=== PATIENT | female | born 1955 | race Caucasian/White ===

== ENCOUNTER → 2024-09-18 12:09 | Outpatient (REF) | payer MEDICARE, OTHER, SELFPAY | LOC: RAD 12:09 | PROVIDERS: ATTENDING PHYSICIAN Internal Medicine Cardiovascular Disease; FAMILY PHYSICIAN Internal Medicine | DX: L40.50 Arthropathic psoriasis, unspecified (principal) | CPT/HCPCS: 71250 ==

== ENCOUNTER 2024-09-25 17:29 | Emergency (ER) | payer MEDICARE, OTHER, SELFPAY ==
[2024-09-25 17:33] VITALS: BP 173/125
[2024-09-25 17:48] LABS: % Basophils 0.6 % (0-2); % Eosinophils 1.3 % (0-6); % Immature Granulocytes 0.3 % (0-0.5); % Lymphocytes 29.5 % (20.5-51.1); % Monocytes 7.5 % (1.7-9.3); % Neutrophils 60.8 % (42.2-75.2); Absolute Basophils 0.1 10^3/uL (0-0.2); Absolute Eosinophils 0.1 10^3/uL (0-0.7); Absolute Lymphocytes 2.3 10^3/uL (1.2-3.4); Absolute Monocytes 0.6 10^3/uL (0.1-0.6); Absolute Neutrophils 4.8 10^3/uL (1.4-6.5); Hematocrit 39.1 % (37.0-47.0); Hemoglobin 13.3 g/dL (12.0-16.0); Mean Corpuscular Hgb 29.8 pg (27.0-31.0); Mean Corpuscular Volume 87.5 fL (81.0-99.0); Nucleated Red Blood Cells % 0 %; Platelet Count 275 10^3/uL (130-400); Red Blood Cell Count 4.47 10^6/uL (4.20-5.40); Red Cell Dist. Width 13.1 % (11.5-14.5); White Blood Cell Count 7.9 10^3/uL (4.8-10.8)
[2024-09-25 18:00] VITALS: BMI 31.4
[2024-09-25 18:04] VITALS: BP 177/80
[2024-09-25 18:07] VITALS: BP 177/80
[2024-09-25 18:08] LABS: ALT (SGPT) 19 U/L (0-35); AST (SGOT) 25 U/L (14-36); Albumin 4.5 g/dl (3.5-5.0); Alkaline Phosphatase 90 U/L (38-126); Blood Urea Nitrogen 25 mg/dl (7-17); Calcium 9.6 mg/dl (8.4-10.2); Carbon Dioxide 26 mmol/L (22-30); Chloride 101 mmol/L (98-107); Estimated Creatinine Clearance 72 ml/min; Glucose 99 mg/dl (70-99); Potassium 4.2 mmol/L (3.5-5.1); Sodium 140 mmol/L (135-145); Total Bilirubin 0.4 mg/dl (0.2-1.3); Total Protein 7.4 g/dl (6.3-8.2); eGFR > 60.00
[2024-09-25 18:10] LABS: Troponin I < 0.012 ng/ml
--- NOTE | 2024-09-25 18:34 | ED.GENMED ---
History of Present Illness
General
Chief Complaint: Back Pain
Source: patient
Exam Limitations: none
Time Seen by Provider: 09/25/24 17:57
History of Present Illness
History of Present Illness:
This is a 68 year old female that comes in with c/o left sided back/flank pain. States that this has been constant since Sunday and her thought that he felt a lump there. States that she has no appetite. States that the pain was getting
worse today. Denies any fever, chills, chest pain, SOB, abd pain, nausea, vomiting, diarrhea, headache, dizziness, urinary burning.
Past History
Past History
ED Past Medical History: HTN and Other (sarcoidosis, Ulcers, UTI)
ED Past Surgical History: Gynecological (Hysterectomy) and Orthopedic (Back surgery, Left shoulder surgery. Left Femur , hand and wrist surgery, Partial left knee replacement)
Social History
Tobacco: Non-smoker
Alcohol: None
Personal:
Living: with family
Review of Systems
Review of Systems
All Other Systems: ROS reviewed and negative except as documented in HPI and ROS
Constitutional: Reports no symptoms; Denies fever or chills
EENT: Reports no symptoms
Respiratory: Reports no symptoms; Denies cough or trouble breathing
Cardiac: Reports no symptoms; Denies chest pain
ABD/GI: Reports no symptoms; Denies abdominal pain, nausea, vomiting or diarrhea
: Reports no symptoms; Denies dysuria, frequency or urgency
Musculoskeletal: Reports other (Left mid back/flank pain)
Skin: Reports no symptoms
Neurological: Reports no symptoms; Denies dizzy or headache
Psychiatric: Reports no symptoms
Phy Exam
General Physical Exam
General Presentation: well appearing and no apparent distress
General age: appears stated age
General Skin: warm and dry
General Habitus: elderly
General Mental: alert
General Hydration: appears well hydrated
ENT Exam
ENT Exam: TM's normal, pharynx normal and neck supple
Eye Exam
Eye Exam: EOMI
Cardiovascular Exam
Cardiovascular Exam: regular rate/rhythm, no edema, no murmur and normal peripheral pulses
Pulmonary Exam
Pulmonary Exam: lungs clear, no respiratory distress, no rales, chest non tender, no crackles, no rhonchi, no wheezing and no cough
Gastrointestinal Exam
Gastrointestinal Exam: normal bowel sounds, non tender, soft, no organomegaly, no pulsatile mass and non distended
Musculoskeletal Exam
Musculoskeletal Exam: full ROM, no edema and other (Tenderness with palpation over the left mid lateral back area )
Skin Exam
Skin Exam: normal color, warm/dry, no rash and no petechia
Psychiatric Exam
Psychiatric Exam: normal mood/affect
Course
Orders/Labs/Results
Orders:
Orders
09/25/24 17:32
EKG [Electrocardiogram (*1)] Urgent
Reason for Study: Hypertension, Benign
09/25/24 17:33
EKG- Treatment ONCE
09/25/24 17:40
CBC/With Diff [Complete Blood Count/With Diff] Urgent
CMP [Comprehensive Metabolic Panel] Urgent
Troponin I Urgent
09/25/24 17:53
EKG [Electrocardiogram (*1)] Stat
Reason for Study: Abdominal Pain
EKG- Treatment ONCE
09/25/24 18:34
CR Chest - 2 Views Urgent
Comment:
Reason For Exam: left sided chest discomfort
09/25/24 18:39
CT Abd/pelvis W Iv Cont Urgent
Comment:
Reason For Exam: Left sided flank pain
0.9% Sodium Chloride 1000 ml [Nss] 1,000 ml IV BOLUS
09/25/24 19:19
Urinalysis Reflex To Culture Urgent
Date Specimen was Collected: 09/25/24
Time Specimen was Collected: 19:19
Urine Microscopic Reflex Cult Urgent
Abnormal Lab Results
09/25/24 09/25/24
17:40 19:19
BUN 25 H mg/dl
(7-17)
Ur Occult Blood Reflex 1+ A
(Negative)
Urine RBC 7-10 A /HPF
(0-2)
09/25/24 17:40
09/25/24 17:40
Dehydration. Troponin <0.012, Urine negative for infection.
Vital Signs
Initial and Last Documented VS:
Initial Vital Signs
Temp Pulse Resp BP Pulse Ox
98.7 F 83 17 173/125 97
09/25/24 17:33 09/25/24 17:33 09/25/24 17:33 09/25/24 17:33 09/25/24 17:33
Last Documented Vital Signs
Temp Pulse Resp BP Pulse Ox
98.7 F 71 29 177/80 96
09/25/24 17:33 09/25/24 18:39 09/25/24 18:39 09/25/24 18:07 09/25/24 19:15
MDM/Problems Addressed
Differential Diagnosis Includes:
Renal calculus, Musculoskeletal pain
MDM/Problems Addressed:
This is a 68 year old female that comes in with c/o left sided flank pain. States that this started on Sunday and has been constant.
Will check labs. Urine, Chest x-ray and get CT scan of abd/pelvis.
Back into see patient. Explained that her blood work shows Dehydration. Her Chest x-ray is normal and there is nothing acute on the CT scan. This may be musculoskeletal in nature. Patient to use heat or ice which ever make her feel better. Tylenol
1000mg very 6 hours for pain and follow up with the family doctor. IF THE PAIN changes or increased patient to return to the emergency room.
Chronic conditions affecting care:
NA
Acute Exacerbation and/or Progression of Chronic Illness:
NA
*Radiology
Radiology exam reviewed: radiology read reviewed ( chest-NO acute cardiopulmonary process. CT-innominate symmetric bilateral renal excretion. Small hiatal hernia. Mild hepatomgaly versus incidental Uri's lobe morphology. Two small low-
attenuation left lobe hepatic lesions too small to characterize. Unremarkable appearance of the gallbladder), all reviewed NAD by ED Provider (CT cont-No findings to suggest biliary tract dilation. Three tiny calcific foci seen in the right upper
quadrant of the abdomen, anterior to the IVC, difficult to determiine exact position, cannot exclude small stones in the nondilated distal common bile duct. Suggest correlation with LFT's. Prior ) and other (CT cont-hysterectomy. No given history of
oophorectomy. 2.9cm simple appearing cyest in the right true pelvis which could represent an ovarian cyst, not typical for patient age. Other etiology such as a mesenteric cyst cannot be differentiated. )
*Pulse Oximetry
Patient hypoxic: no
*EKG
Interpreted by ED Provider?: Yes
Heart Rate: 76
Rate: normal
Rhythm: sinus
[place]: left axis deviation
Interval: normal interval
QRS Pattern: normal QRS
Ischemia: no ischemia
*Exercise Teacher Interpretation
Rate: normal
Heart Rate: 72
Rhythm: sinus
*Critical Care Note
Total Time (30-74mins, 75-104mins- exclusive of procedures): Not Applicable
ED Attending Note
-
Portions of this chart may have been created with voice recognition software.� Occasional wrong word or��sound alike� substitutions may have occurred due to the inherent limitations of voice recognition software.
Discharge Plan
Departure
Patient Disposition: Home (Routine Discharge)
Date of Disposition: 09/25/24
Time of Disposition: 20:58
Patient with high blood pressure during this ER visit?: Yes
Condition: Good
Covid-19: Not Applicable
Discharge Problem:
Acute left-sided back pain, Musculoskeletal pain
Instructions: Upper Back Pain (DC), BLOOD PRESSURE, Musculoskeletal Pain
Prescriptions:
No Action
valsartan [Diovan] 160 MG capsule
160 mg PO HS
nitrofurantoin macrocrystal 50 MG capsule
50 mg PO DAILY
omeprazole 40 MG capsule,delayed release(DR/EC)
40 mg PO DAILYPRN PRN (Reason: acid reflux)
tramadol 50 MG tablet
50 mg PO Q6HPRN PRN (Reason: pain)
levothyroxine 88 MCG tablet
88 mcg PO DAILY
levofloxacin [Levaquin] 500 MG tablet
500 mg PO DAILY
vitamin B complex [Neurodep] 1 CAP capsule
1 cap PO DAILY
docosahexaenoic acid-epa 1 CAP capsule
1 cap PO DAILY
cholecalciferol (vitamin D3) 1,000 UNITS tablet
5,000 units PO DAILY
Referrals:
Meli Hogan MD [Family Provider] - Follow up in 2-3 days
Activity Restrictions/Additional Instructions:
As discussed, your blood work shows that you are dehydrated. Please increase your water intake to 8-8oz glasses daily. Your Chest x-ray is normal along with the CT of the abd/pelvis. You may use Tylenol 1000mg every 6 hours for pain. Heat or ice
which ever makes you feel better. Follow up with the family doctor for recheck. Please take your Omeprazole daily. IF YOU HAVE INCREASED OR CHANGNG PAIN, OR YOU HAVE ANY OTHER CONCERNS PLEASE RETURN TO THE EMERGENCY ROOM.
Interventions
Interventions:
*Risk Screen - Suicide Last Done: 09/25/24 17:33
*General Assessment Last Done: 09/25/24 17:33
*Neglect/Abuse Screening Last Done: 09/25/24 17:33
ED- Fall Risk Assessment Last Done: 09/25/24 18:00
*ED COVID-19 Vaccine History Last Done: 09/25/24 18:00
ED-Musculoskeletal Assessment Last Done: 09/25/24 18:00
Discharge Date and Time
Print Language: LATVIAN
[2024-09-25] MEDS: NSS 1000 IV (19:25)
[2024-09-25 19:32] LABS: Urine Albumin Negative (Neg - Trace); Urine Bilirubin Negative (Negative); Urine Character Clear (Clear); Urine Color Yellow; Urine Glucose Negative (Negative); Urine Ketone Negative (Negative); Urine Leukocyte Negative (Negative); Urine Nitrite Negative (Negative); Urine Occult Blood 1+ (Negative); Urine Urobilinogen Negative (Neg - 1+)
[2024-09-25 20:12] LABS: Urine Mucus Few
[2024-09-25 20:20] VITALS: BP 166/72
== END 2024-09-25 21:23 | disposition home or self-care (01) ==
LOC: EMR 17:29
PROVIDERS: Clinical Nurse Specialist Family Health; EMERGENCY PHYSICIAN Emergency Medicine; FAMILY PHYSICIAN Internal Medicine
DX: M54.9 Dorsalgia, unspecified (principal); M79.18 Myalgia, other site; E86.0 Dehydration; I10 Essential (primary) hypertension; Z90.710 Acquired absence of both cervix and uterus
CPT/HCPCS: 99285; 96360; 71046; 74177; 80053; 81003; 81015; 84484; 85025; 93005; Q9967